=== PATIENT | male | born 1960 | race American Indian/Alaskan Native ===

== ENCOUNTER 2021-08-08 19:40 | Emergency (ER) | payer OTHER ==
--- NOTE | 2021-08-08 21:07 | Emergency Department Report ---
ED Extremity Problem HPI - General Chief complaint: Extremity Injury, Upper Stated complaint: SWELLING ON ELBOW Time Seen by Provider: 08/08/21 20:56 Source: patient Mode of arrival: Ambulatory Limitations: No Limitations - History of Present Illness Initial comments: Patient is a 61-year-old male presents emergency room with complaints of right elbow swelling that he noticed today. He denies any specific fall or injury. He denies any pain in the elbow. He states he is still able to move without any difficulty. He denies any fever, redness, rash, increased warmth. He denies ever having this in the past. He denies any numbness or weakness. No past medical history. No allergies to medications. 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 - Related Data Previous Rx's Medication Instructions Recorded Last Taken Type ALBUTEROL NEB's [Proventil 0.083% 2.5 mg IH Q6H PRN #75 ml 11/24/13 Unknown Rx NEBS] Albuterol Sulfate [Proventil HFA] 6.7 gm IH Q4H PRN #1 hfa.aer.ad 11/24/13 Unknown Rx Nebulizer [Compact Compressor 1 each MC PRN PRN #1 kit 11/24/13 Unknown Rx Nebulizer] Naproxen 375 mg PO BID #14 tablet 08/08/21 Unknown Rx Prednisone [predniSONE 10 mg 10 mg PO .TAPER #1 tab.ds.pk 08/08/21 Unknown Rx (6-Day Pack, 21 Tabs)] Allergies Allergy/AdvReac Type Severity Reaction Status Date / Time No Known Allergies Allergy Verified 08/08/21 20:31 ED Review of Systems ROS: Stated complaint: SWELLING ON ELBOW Other details as noted in HPI Comment: All other systems reviewed and negative ED Past Medical Hx - Past Medical History Hx Asthma: Yes - Surgical History Past Surgical History?: No - Social History Smoking Status: Current Every Day Smoker Substance Use Type: Alcohol - Medications Home Medications: Home Medications Medication Instructions Recorded Confirmed Last Taken Type ALBUTEROL NEB's [Proventil 0.083% 2.5 mg IH Q6H PRN #75 ml 11/24/13 Unknown Rx NEBS] Albuterol Sulfate [Proventil HFA] 6.7 gm IH Q4H PRN #1 hfa.aer.ad 11/24/13 Unknown Rx Nebulizer [Compact Compressor 1 each MC PRN PRN #1 kit 11/24/13 Unknown Rx Nebulizer] Naproxen 375 mg PO BID #14 tablet 08/08/21 Unknown Rx Prednisone [predniSONE 10 mg 10 mg PO .TAPER #1 tab.ds.pk 08/08/21 Unknown Rx (6-Day Pack, 21 Tabs)] ED Physical Exam - General Limitations: No Limitations General appearance: alert, in no apparent distress - Head Head exam: Present: atraumatic, normocephalic - Eye Eye exam: Present: normal appearance - ENT ENT exam: Present: mucous membranes moist - Extremities Exam Extremities exam: Present: other (edema present overlying the olecranon process, no erythema, no increased warmth, no skin changes, FROM of the RUE, no deformity, neurovascularly intact) - Neurological Exam Neurological exam: Present: alert, oriented X3 - Psychiatric Psychiatric exam: Present: normal affect, normal mood - Skin Skin exam: Present: warm, dry, intact ED Medical Decision Making - Medical Decision Making Patient is a 61-year-old male presents emergency room with complaints of right elbow swelling that he noticed today. He denies any specific fall or injury. He denies any pain in the elbow. He states he is still able to move without any difficulty. He denies any fever, redness, rash, increased warmth. He denies ever having this in the past. He denies any numbness or weakness. No past medical history. No allergies to medications. 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 vss. on exam: edema present overlying the olecranon process, no erythema, no increased warmth, no skin changes, FROM of the RUE, no deformity, neurovascularly intact. Examination consistent with olecranon bursitis. Patient has had no acute trauma. He has no signs of infection/cellulitis/septic joint at this time. Patient given prescription for medication. Patient placed in Luis wrap and remain neurovascularly intact. Advised patient Please take medication as prescribed. Do not wear Luis bandage too tightly do not wear at night while sleeping. Avoid leaning on elbow. Follow-up with orthopedic doctor. Return to emergency room for any new or worsening symptoms. Critical care attestation.: If time is entered above; I have spent that time in minutes in the direct care of this critically ill patient, excluding procedure time. ED Disposition Clinical Impression: Olecranon bursitis of right elbow Disposition: HOME / SELF CARE / HOMELESS Is pt being admited?: No Does the pt Need Aspirin: No Condition: Stable Instructions: Elbow Bursitis Additional Instructions: Please take medication as prescribed. Do not wear Luis bandage too tightly do not wear at night while sleeping. Avoid leaning on elbow. Follow-up with orthopedic doctor. Return to emergency room for any new or worsening symptoms. Prescriptions: Naproxen 375 mg PO BID #14 tablet Prednisone [predniSONE 10 mg (6-Day Pack, 21 Tabs)] 10 mg PO .TAPER #1 tab.ds.pk Referrals: ISABELL MARKHAM MD [Staff Physician] - 3-5 Days [facility] [Provider Group] - 3-5 Days Time of Disposition: 21:06 Print Language: GREENLANDIC
[2021-08-08 23:08] VITALS: BP 147/90
== END 2021-08-08 21:42 | disposition home or self-care (01) ==
LOC: ED 19:40
DX: M70.21 Olecranon bursitis, right elbow (principal); J45.909 Unspecified asthma, uncomplicated; F17.200 Nicotine dependence, unspecified, uncomplicated; Y93.89 Activity, other specified
CPT/HCPCS: 99282